=== PATIENT | female | born 1965 | race Caucasian/White ===

== ENCOUNTER 2017-05-14 12:12 | Observation (INO) | payer MEDICAID ==
[~2017-05-14] VITALS: Ht 170.2 cm; Wt 102.3 kg
[~2017-05-14 12:12] MED LIST: AMOX1TAB61 PO; FLEC150T PO; WARF7.5T6 PO
[2017-05-14] MEDS ORDERED: NITROGLYCERIN OINT 2%, 1GM TP ONE ×2 (14:00→14:02)
[2017-05-14 14:25] LABS: HEMOGLOBIN 14.9 g/dL (11.7-16.4); WHITE BLOOD COUNT 5.4 x10^3/uL (3.4-10)
[2017-05-14 14:35] LABS: BLOOD UREA NITROGEN 12 mg/dL (7-18)
[2017-05-14 14:42] LABS: IS PT STATUS REG ER OR PRE ER? YES
[2017-05-14] MEDS ORDERED: LEVO175T5 PO (16:46)
[2017-05-14] MEDS ORDERED: LEVO150T5 PO (16:48)
[2017-05-14] MEDS ORDERED: ONDANSETRON 2MG/ML, 2ML IVPush PRN (17:30)
[2017-05-14] MEDS ORDERED: HYDROcodone/APAP 5/325 TABLET PO PRN (17:30)
[2017-05-14] MEDS ORDERED: ONDANSETRON ODT 4 MG PO PRN (17:30)
[2017-05-14] MEDS ORDERED: LABETALOL 5MG/ML, 20ML IVPush PRN (17:30)
[2017-05-14] MEDS ORDERED: POLYETHYLENE GLYCOL 17 GM PACKET PO PRN (17:30)
[2017-05-14] MEDS ORDERED: GUAIFENESIN/DM 200-20MG, 10ML UDC PO PRN (17:30)
[2017-05-14] MEDS ORDERED: morphine SULFATE 10 MG/ML, 1ML IVPush PRN (17:30)
[2017-05-14] MEDS ORDERED: WARFARIN 10 MG TABLET PO-COUM ONE (18:00)
[2017-05-14] MEDS: ENOXAPARIN 40 MG/0.4 ML SQ SCH ×2 (18:00→18:18)
[2017-05-14] MEDS: SODIUM CHLORIDE 0.9% 1,000 ML IV SCH (18:19)
[2017-05-14 18:25] VITALS: BP 103/64
[2017-05-14 18:51] LABS: IS PT STATUS REG ER OR PRE ER? NO
[2017-05-14] MEDS: FLECAINIDE 50MG TABLET PO SCH (19:48)
[2017-05-15 00:02] LABS: IS PT STATUS REG ER OR PRE ER? NO
[2017-05-15] MEDS: SODIUM CHLORIDE 0.9% 1,000 ML IV SCH (01:22)
[2017-05-15 02:21] VITALS: BP 115/74
[2017-05-15 06:09] LABS: HEMATOCRIT 41.3 % (34.6-47.8); WHITE BLOOD COUNT 5.7 x10^3/uL (3.4-10)
[2017-05-15 06:13] LABS: ASPARTATE AMINO TRANSFERASE 23 U/L (15-37); BLOOD UREA NITROGEN 14 mg/dL (7-18)
[2017-05-15] MEDS ORDERED: REGADENOSON 0.4 MG/5 ML SYRINGE ONE (08:28)
[2017-05-15 08:50] VITALS: BP 162/96
[2017-05-15] MEDS: FLECAINIDE 50MG TABLET PO SCH (08:51)
[2017-05-15] MEDS ORDERED: SENNA/DOCUSATE TABLET PO SCH (09:00)
[2017-05-15] MEDS ORDERED: LEVOTHYROXINE 175 MCG TABLET PO SCH (09:00)
[2017-05-15 13:00] VITALS: BP 144/84
[2017-05-15] MEDS ORDERED: WARFARIN 2.5 MG TABLET PO-COUM ONE (18:00)
[2017-05-15] MEDS ORDERED: WARFARIN 10 MG TABLET PO-COUM ONE (18:00)
== END 2017-05-15 15:02 | disposition home or self-care (01) ==
LOC: MERGE 13:20 → ED 13:20 → EDIP 16:23 → INTOOBSV 16:23 → 5SO 17:37
PROVIDERS: ADMIT Family Medicine; ATTEND Family Medicine
DX: R07.2 Precordial pain (principal); I48.2 Chronic atrial fibrillation; E03.9 Hypothyroidism, unspecified; D68.69 Other thrombophilia; E66.01 Morbid (severe) obesity due to excess calories; I82.409 Acute embolism and thrombosis of unspecified deep veins of unspecified lower extremity; Z79.01 Long term (current) use of anticoagulants; Z82.3 Family history of stroke; Z86.718 Personal history of other venous thrombosis and embolism; Z90.49 Acquired absence of other specified parts of digestive tract
CPT/HCPCS: 36415; 71010; 78452; 80048; 80053; 82040; 83036; 83735; 83880; 84439; 84484; 85025; 85610; 85651; 93005; 93017; 93306; 96360; 96361; 99285; A9502; C9898; G0378; J2785; J7030; J1650